=== PATIENT | male | born 1995 | race Caucasian/White ===

== ENCOUNTER 2016-09-29 19:31 | Emergency (ER) | payer MEDICAID ==
[~2016-09-29] VITALS: Ht 180.3 cm; Wt 95.0 kg
[2016-09-29] MEDS ORDERED: LIDOCAINE HCL 1% 20ML VIAL (Pyxis) INJ MC ONE (23:45)
[2016-09-29] MEDS ORDERED: BACITRACIN ZINC OINT UDPKT TOP ONE (23:45)
[2016-09-29] MEDS ORDERED: KETOROLAC 30MG/ML VIAL IM ONE (23:45)
[2016-09-30 00:05] VITALS: BP 127/71
== END 2016-09-30 01:06 | disposition home or self-care (01) ==
LOC: ER 19:31
DX: L02.415 Cutaneous abscess of right lower limb (principal); M25.571 Pain in right ankle and joints of right foot; F17.200 Nicotine dependence, unspecified, uncomplicated
CPT/HCPCS: 10060; 73610; 96372; 99284; J1885; J3490; X7700; Z7610